=== PATIENT | male | born 1965 | race Caucasian/White ===

== ENCOUNTER 2016-07-22 10:04 | Emergency (ER) | payer SELFPAY ==
[~2016-07-22] VITALS: Ht 172.7 cm; Wt 90.0 kg
[~2016-07-22 10:04] MED LIST: ACET500C5 PO; CEPH500C PO; HYDR-3498 PO; HYDR-762 PO; IBUP800T25 PO; NAPR-260 PO; SULF1TAB7 PO
[2016-07-22 10:09] VITALS: Ht 172.7 cm; Wt 90.0 kg
--- NOTE | 2016-07-22 11:35 | RADRPT ---
PROCEDURE: XR right third toe CLINICAL INDICATION: Pain TECHNIQUE: AP, oblique, and lateral radiographs were submitted. COMPARISON: None FINDINGS: Osseous structures: appear well mineralized and intact with no fracture or destructive process iden tified. Joint spaces: are well maintained, with no significant spurring, erosion or joint effusion evident. Soft tissues: appear unremarkable. IMPRESSION: Unremarkable right third toe. Physician Jt Date Time Electronically viewed and signed by Physician Jt on 07/22/2016 11:35 /
[2016-07-22] MEDS ORDERED: NAPR-260 PO (11:51)
--- NOTE | 2016-07-22 17:10 | ERD ---
DATE OF SERVICE: 07/22/2016 HISTORY OF PRESENT ILLNESS: The patient is a 50-year-old male coming complaining of pain to his rig ht third toe. The patient had a beam fall on his toe yesterday. He has taken Motrin. He states he is able to walk without any pain, but there is mild pain with flexion of the toe. He has no numbne ss or tingling. PAST MEDICAL HISTORY: Denies any medical problems. ALLERGIES: DENIES ALLERGIES TO MEDICATIONS. HOSPITALIZATIONS: Denies. SOCIAL HISTORY: Denies. REVIEW OF SYSTEMS: A 12-point review of systems was done. Refer to HPI for positives; all other sy stems negative. PHYSICAL EXAMINATION VITAL SIGNS: Temperature is 97.8, pulse 88, blood pressure 132/79, respiratory 18, O2 saturation 99 % on room air. Pain intensity of 5/10. GENERAL: The patient is well-appearing, well-nourished, no acute distress. CHEST: Clear to auscultation bilaterally. There are no rales, wheezes or rhonchi. HEART: Regular rate and rhythm. No murmurs, clicks, rubs or gallops. No S3 or S4. NEURO: Alert and oriented. Cranial nerves 2-12 intact. Motor strength in all 4 extremities with 5/5 strength. Sensation grossly intact. Normal speech and gait. Babinski negative. DTR 2+ throughout. SKIN: There is a small ecchymotic change noted to the distal tip of his right third toe. EXTREMITIES: There is no obvious deformity or crepitus felt on examination. The patient is able to flex and extend at the DIP joint of the right third toe without diminished flexion, extension. EMERGENCY ROOM COURSE: The patient had a 3-view x-ray done of the right third toe which showed unre markable right third toe. The patient was given irene tape to the second toe and given a hard sole shoe. DIAGNOSIS: Right toe contusion. MEDICAL DECISION MAKING: I have low suspicion for acute fracture or dislocation, low suspicion for tendon or ligament injury; low suspicion for open fracture. The patient likely sustained contusion to his toe which has developed ecchymotic changes. DISCHARGE: The patient is discharged stable. The patient is given prescription for naproxen and to ld to follow up with primary care within 1 to 2 days for reevaluation. The patient was told if symp toms progress or worsen to return to the ER. All other questions answered at time of discharge. Symone carballo summary given at the time of departure. The patient understood and complied with plan. Dictated By: ALFONZO ROE for JENNA BESS/LIZ Conf#: [id number] DID#: [id number]
== END 2016-07-22 14:56 | disposition left against medical advice (07) ==
LOC: FTE 10:04
DX: S90.121A Contusion of right lesser toe(s) without damage to nail, initial encounter (principal); W18.39XA Other fall on same level, initial encounter; Y92.9 Unspecified place or not applicable
CPT/HCPCS: 73660